=== PATIENT | female | born 1980 | race Caucasian/White ===

== ENCOUNTER 2021-02-16 15:10 | Emergency (ER) | payer BC ==
[~2021-02-16] VITALS: Ht 162 cm; Wt 54.0 kg
--- NOTE | 2021-02-16 15:49 | ED Back Pain ---
General Chief Complaint: Back Problems Stated Complaint: BACK PAIN Nursing Triage Note: PT AMB TO ROOM FT1 PT CO OF UPPER BACK PAIN FOR APPROX 2 MONTHS FROM R UPPER BACK TO AROUND UNDER ARM. RATES PAIN 02/17. STATES HAS WORSENING PAIN WHEN COUGHS OR SNEEZES. PT WAS SEEN APPROX 1 MONTH AGO AT [facility]. Source of Information: Patient Exam Limitations: No Limitations History of Present Illness Date Seen by Provider: Feb 16, 2021 Time Seen by Provider: 15:00 Initial Comments With pain to the medial border of the mid right scapula for several months. This seemed to start after cough, she is already had a chest x-ray and was told it was normal. She followed with [facility]. No fevers or chills or injury. The pain radiates around the right scapula to the lateral chest wall as a tingling sensation. She has been trying ibuprofen and some leftover Flexeril without much relief. Location: C-Spine, T-Spine Severity: Moderate Method of Injury: Unknown Allergies and Home Medications Allergies Coded Allergies: No Known Drug Allergies (Unverified , 02/16/21) Patient Home Medication List Home Medication List Reviewed: Yes Review of Systems Constitutional: see HPI EENTM: see HPI Respiratory: no symptoms reported Cardiovascular: no symptoms reported Genitourinary: no symptoms reported Musculoskeletal: see HPI Skin: no symptoms reported Past Liivgkq-Wwwtkn-Slkpbq Hx Patient Social History Tobacco Use?: Yes Tobacco type used: Cigarettes Smoking Status: Current Everyday Smoker Substance use?: Yes Substance type: Marijuana Alcohol Use?: No Pt feels they are or have been: No Immunizations Up To Date Second COVID19 Vaccination Morgan: MODERNA BOTH VACCINATION Physical Exam Vital Signs Vital Signs - First Documented 02/16/21 15:25 Temp 38.0 Pulse 68 Resp 18 B/P (MAP) 101/50 (67) Pulse Ox 97 Capillary Refill : Less Than 3 Seconds Height, Weight, BMI Height: '" Weight: lbs. oz. kg; 20.00 BMI Method: General Appearance: No Apparent Distress Respiratory: No Accessory Muscle Use, No Respiratory Distress Gastrointestinal: Normal Bowel Sounds, Non Tender, Soft Neurologic/Psychiatric: Alert, Oriented x3 Skin: Normal Color, Warm/Dry Progress/Results/Core Measures Results/Orders Vital Signs/I&O 02/16/21 15:25 Temp 38.0 Pulse 68 Resp 18 B/P (MAP) 101/50 (67) Pulse Ox 97 Blood Pressure Mean: 67 Departure Impression Primary Impression: Periscapular pain Disposition: 01 HOME, SELF-CARE Condition: Stable Departure-Patient Inst. Decision time for Depature: 15:48 Referrals: [facility] (PCP/Family) Primary Care Physician Patient Instructions: Upper Back Pain (DC) Add. Discharge Instructions: 1. Follow-up with [facility] to discuss MRI of the cervical spine given these symptoms as they could be union contract representative of a disc bulge in the lower cervical spine. Return to ER for any worsening. Pain medication as directed in the meantime. All discharge instructions reviewed with patient and/or family. Voiced understanding. Scripts Naproxen (Naprosyn) 500 Mg Tablet 500 MG PO BID PRN for PAIN-MODERATE (5-7), #30 TAB 0 Refills Prov: DAVID POZO APRN 02/16/21 Hydrocodone/Acetaminophen (Hydrocodone-Acetamin 5-325 mg) 1 Each Tablet 1 TAB PO Q4H PRN for PAIN-MODERATE (5-7), #10 TAB Prov: DAVID POZO APRN 02/16/21 Methocarbamol (Methocarbamol) 750 Mg Tablet 750 MG PO Q6-8HR for Back Pain, #20 TAB Prov: DAVID POZO APRN 02/16/21 DAVID POZO APRN Feb 16, 2021 15:49
[2021-02-16] MEDS ORDERED: METH-732 PO (15:52)
[2021-02-16] MEDS ORDERED: NAPR-1071 PO (15:52)
[2021-02-16] MEDS ORDERED: ACHD5005 PO (15:52)
[2021-02-16 16:09] VITALS: BP 101/50
== END 2021-02-16 16:14 | disposition home or self-care (01) ==
LOC: ER 15:13
DX: M25.511 Pain in right shoulder (principal); F17.210 Nicotine dependence, cigarettes, uncomplicated
CPT/HCPCS: 99281

== ENCOUNTER 2021-11-19 14:55 | Emergency (ER) | payer BC ==
[~2021-11-19 14:55] MED LIST: ACHD5005 PO; METH-732 PO; NAPR-1071 PO
[2021-11-19] MEDS ORDERED: FAMOTIDINE 20 MG (PEPCID) TABLET PO STA (15:19)
--- NOTE | 2021-11-19 15:25 | ED Chest Pain ---
General Chief Complaint: Chest Pain Stated Complaint: CHEST TIGHTNESS Nursing Triage Note: PT AMB TO RM 10 WITH C/O CP SINCE SATURDAY MORNING AND INCREASED ANXIETY Source: patient Exam Limitations: no limitations History of Present Illness Date Seen by Provider: Nov 19, 2021 Time Seen by Provider: 15:00 Initial Comments Patient to the ER by private conveyance with chief complaint that since Saturday morning, almost 36 hours ago she started experiencing tightness and discomfort substernal in her chest nonradiating. She has been dealing with some back pain for the past several weeks and went to [facility] and was started on Mobic. She does not have a history of GERD, PUD, gastritis, or reflux. She took it for a couple days as well as a steroid and did not like the way she felt and could not sleep so she stopped both of them. She noticed a little bit of numbness and tingling in her hands while at work at [employer]. She does not have a personal or family history of early onset coronary disease. She does smoke about half a pack of cigarettes per day. 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 She denies any other recreational drug use. She does occasionally use vaporizers. She is not having any nausea vomiting shortness of breath wheezing or cough. She has a history of asthma but no diabetes, hypertension, hyperlipidemia or hypothyroidism. Yesterday she thought it was just her anxiety and so she got 1/2 mg of Xanax from her friend and states that helped her significantly. She took the other half milligram this morning and it helped some with her anxiety but she was still having the tightness in her chest. Allergies and Home Medications Allergies Coded Allergies: No Known Drug Allergies (Unverified , 02/16/21) Patient Home Medication List Home Medication List Reviewed: Yes Hydrocodone/Acetaminophen (Hydrocodone-Acetamin 5-325 mg) 1 Each Tablet, 1 TAB PO Q4H PRN for PAIN-MODERATE (5-7) Prescribed by: DAVID POZO on 02/16/21 1553 Methocarbamol (Methocarbamol) 750 Mg Tablet, 750 MG PO Q6-8HR Prescribed by: DAVID POZO on 02/16/21 1552 Naproxen (Naprosyn) 500 Mg Tablet, 500 MG PO BID PRN for PAIN-MODERATE (5-7) Prescribed by: DAVID POZO on 02/16/21 1552 Review of Systems Review of Systems Constitutional: No chills, No diaphoresis EENTM: No Blurred Vision, No Double Vision Respiratory: Denies Cough, Denies Shortness of Air Cardiovascular: See HPI, Chest Pain; Denies Edema, Denies Lightheadedness, Denies Palpitations, Denies Syncope Gastrointestinal: Denies Abdomen Distended, Denies Abdominal Pain, Denies Constipated, Denies Diarrhea, Denies Nausea Genitourinary: Denies Burning, Denies Discharge Musculoskeletal: No back pain, No joint pain Skin: No pruritus, No rash All Other Systems Reviewed Negative Unless Noted: Yes Past Omljmfv-Wbesnh-Ijxgur Hx Patient Social History Tobacco Use?: Yes Tobacco type used: Cigarettes Use of E-Cig and/or Vaping dev: Yes E-Cig or Vaping type used: Marijuana Substance use?: Yes Substance type: Marijuana Substance frequency: Couple times a week Alcohol Use?: No Pt feels they are or have been: No Immunizations Up To Date First/Initial COVID19 Vaccinat: 2020 Second COVID19 Vaccination Morgan: 2020 COVID19 Vaccine Morgue Technician: MODERNAnshu Past Medical History Surgery/Hospitalization HX: PARTIAL HYSTO ASTHMA, ANXIETY Physical Exam Vital Signs Vital Signs - First Documented 11/19/21 14:58 Temp 36.6 Pulse 68 Resp 20 B/P (MAP) 116/92 (100) Capillary Refill : Height, Weight, BMI Height: '" Weight: lbs. oz. kg; BMI Method: General Appearance: WD/WN, Anxious HEENT: PERRL/EOMI, Pharynx Normal, Moist Mucous Membranes Neck: Full Range of Motion, Normal Inspection Respiratory: No Chest Non Tender (Chest pain somewhat reproducible direct palpation); Lungs Clear, Normal Breath Sounds, No Accessory Muscle Use, No Respiratory Distress Cardiovascular: Regular Rate, Rhythm, No Edema, Normal Peripheral Pulses Extremity: Normal Capillary Refill, Normal Inspection, Non Tender, No Pedal Edema Neurologic/Psychiatric: Alert, Oriented x3, Other (Anxious affect) Skin: Normal Color, Warm/Dry Progress/Results/Core Measures Results/Orders Lab Results Laboratory Tests Test 11/19/21 15:00 11/19/21 15:20 11/19/21 16:30 Range/Units White Blood Count 5.1 4.3-11.0 10^3/uL Red Blood Count 4.21 3.80-5.11 10^6/uL Hemoglobin 13.2 11.5-16.0 g/dL Hematocrit 39 35-52 % Mean Corpuscular Volume 91 80-99 fL Mean Corpuscular Hemoglobin 31 25-34 pg Mean Corpuscular Hemoglobin Concent 34 32-36 g/dL Red Cell Distribution Width 12.2 10.0-14.5 % Platelet Count 269 130-400 10^3/uL Mean Platelet Volume 9.6 9.0-12.2 fL Immature Granulocyte % (Auto) % Neutrophils (%) (Auto) 52 42-75 % Lymphocytes (%) (Auto) 38 12-44 % Monocytes (%) (Auto) 9 0-12 % Eosinophils (%) (Auto) 0 0-10 % Basophils (%) (Auto) 1 0-10 % Neutrophils # (Auto) 2.6 1.8-7.8 X 10^3 Lymphocytes # (Auto) 1.9 1.0-4.0 X 10^3 Monocytes # (Auto) 0.5 0.0-1.0 X 10^3 Eosinophils # (Auto) 0.0 0.0-0.3 10^3/uL Basophils # (Auto) 0.0 0.0-0.1 10^3/uL Prothrombin Time 13.2 12.2-14.7 SEC INR Comment 1.0 0.8-1.4 Activated Partial Thromboplast Time 26 24-35 SEC Sodium Level 141 135-145 MMOL/L Potassium Level 3.5 L 3.6-5.0 MMOL/L Chloride Level 105 98-107 MMOL/L Carbon Dioxide Level 24 21-32 MMOL/L Anion Gap 12 5-14 MMOL/L Blood Urea Nitrogen 9 7-18 MG/DL Creatinine 0.99 0.60-1.30 MG/DL Estimat Glomerular Filtration Rate 74 BUN/Creatinine Ratio 9 Glucose Level 105 70-105 MG/DL Calcium Level 9.1 8.5-10.1 MG/DL Corrected Calcium 8.8 8.5-10.1 MG/DL Magnesium Level 1.7 1.6-2.4 MG/DL Total Bilirubin 0.8 0.1-1.0 MG/DL Aspartate Amino Transf (AST/SGOT) 18 5-34 U/L Alanine Aminotransferase (ALT/SGPT) 14 0-55 U/L Alkaline Phosphatase 48 40-136 U/L Myoglobin 109.3 H 10.0-92.0 NG/ML Troponin I < 0.028 < 0.028 <0.028 NG/ML Total Protein 7.4 6.4-8.2 GM/DL Albumin 4.4 3.2-4.5 GM/DL Lipase 19 8-78 U/L Urine Color YELLOW Urine Clarity CLEAR Urine pH 5.5 5-9 Urine Specific Murray >=1.030 1.016-1.022 Urine Protein NEGATIVE NEGATIVE Urine Glucose (UA) NEGATIVE NEGATIVE Urine Ketones TRACE H NEGATIVE Urine Nitrite NEGATIVE NEGATIVE Urine Bilirubin NEGATIVE NEGATIVE Urine Urobilinogen 0.2 < = 1.0 MG/DL Urine Leukocyte Esterase NEGATIVE NEGATIVE Urine RBC (Auto) 1+ H NEGATIVE Urine RBC 2-5 H /HPF Urine WBC NONE /HPF Urine Squamous Epithelial Cells 2-5 /HPF Urine Crystals PRESENT H /LPF Urine Amorphous Sediment FEW MARIE URATES H /LPF Urine Bacteria NEGATIVE /HPF Urine Casts NONE /LPF Urine Mucus MODERATE H /LPF Urine Culture Indicated NO My Orders Orders - CHRISS WAYNE Continuous Ekg Monitoring (11/19/21 14:57) Ekg Tracing (11/19/21 14:57) Ua Culture If Indicated (11/19/21 14:57) Urine Bedside (11/19/21 14:57) Cbc With Automated Diff (11/19/21 15:19) Magnesium (11/19/21 15:19) Chest 1 View, Ap/Pa Only (11/19/21 15:19) Comprehensive Metabolic Panel (11/19/21 15:19) Myoglobin Serum (11/19/21 15:19) Protime With Inr (11/19/21 15:19) Partial Thromboplastin Time (11/19/21 15:19) O2 (11/19/21 15:19) Lipid Panel (11/20/21 06:00) Ed Iv/Invasive Line Start (11/19/21 15:19) Lipase (11/19/21 15:19) Aspirin Chewable Tablet (Baby Aspirin Ch (11/19/21 15:30) Famotidine Tablet (Pepcid Tablet) (11/19/21 15:19) Antacid Suspension (Mylanta Suspension (11/19/21 15:30) Troponin I Maribel (11/19/21 15:00) Troponin I Marion (11/19/21 15:59) Medications Given in ED Current Medications Medications Dose Ordered Sig/Alice Route Start Time Stop Time Status Last Admin Dose Admin Al Hydrox/Mg Hydrox/Simethicone 30 ml ONCE ONCE PO 11/19/21 15:30 11/19/21 15:31 DC 11/19/21 15:24 30 ML Aspirin 324 mg ONCE ONCE PO 11/19/21 15:30 11/19/21 15:31 DC 11/19/21 15:24 324 MG Vital Signs/I&O 11/19/21 14:58 Temp 36.6 Pulse 68 Resp 20 B/P (MAP) 116/92 (100) Blood Pressure Mean: 100 Progress Progress Note : Time: 15:29 Progress Note Certainly a component of anxiety. She does not want a thing else for anxiety right now. We will try GI cocktail, 3 and 24 mg of aspirin to chew and swallow and check some labs, chest x-ray. EKG is unremarkable. Vital signs are aseptic. Her asthma does not appear to be involved today. If her first troponin is negative then her heart score she has 1 point HEART Pathway Score. Low risk; 0.9-1.7% 30-day MACE. Initial ECG Impression Date: Nov 19, 2021 Initial ECG Impression Time: 15:04 Initial ECG Rate: 57 Initial ECG Rhythm: Normal Sinus Initial ECG Intervals: Normal Initial ECG Impression: Normal Comment Normal sinus rhythm without clinically relevant ST elevation or depression. Diagnostic Imaging Diagonstic Imaging: Xray Plain Films/CT/US/NM/MRI: chest Comments [facility] [place], [place] NAME: DWAIN BRAR [facility] REC#: [id number] PT STATUS: REG ER : 1980 PHYSICIAN: CHRISS WAYNE MD ADMIT DATE: 11/19/21/ER Signed Date of Exam:11/19/21 CHEST 1 VIEW, AP/PA ONLY EXAMINATION: Chest radiograph, portable AP view. DATE: 11/19/2021 3:44 PM INDICATION: 41-year-old female, chest pain. COMPARISON: None. FINDINGS: Heart size and mediastinal contours are unremarkable. There is no identified pneumothorax. There is no large pleural effusion. There is no identified focal airspace consolidation. There are right 6th and 7th rib deformities which appear most likely chronic. IMPRESSION: 1. No identified acute cardiopulmonary abnormality. 3. Deformities of the right 6th and 7th ribs which appear most likely chronic. Dictated by: Dictated on workstation # [id number] Dict: 11/19/21 1551 Trans: 11/19/21 1607 [facility] [id number] Interpreted by: HARLEY BAUTISTA MD Electronically signed by: HARLEY BAUTISTA MD 11/19/21 1604 Reviewed: Reviewed by Me Departure Impression Primary Impression: Sensation of chest pressure Additional Impression: Anxiety Disposition: HOME, SELF-CARE Condition: Stable Departure-Patient Inst. Decision time for Depature: 17:10 Referrals: [facility] (PCP/Family) Primary Care Physician ADEEL DOTY MD [facility] Patient Instructions: Chest Pain (DC) Add. Discharge Instructions: Call Dr. Doty's office tomorrow morning and request follow-up in the next couple days. He can help you understand your risk for heart disease and rule out serious problems. If he does not find significant cardiac disease then you can go back to your primary care doctor to discuss appropriate follow-up for s tress related anxiety. You should consider things like counseling, medications and therapy equally. For your back pain I recommend you call [facility] physical therapy at [phone] for a note upfront cost evaluation. If they can help you then they will set this up with your insurance company and primary care provider. Please return to the ER for crushing chest pain that is intolerable, shortness of air or other worrisome symptoms. All discharge instructions reviewed with patient and/or family. Voiced un derstanding. Work/School Note: Work Release Form Date Seen in the Emergency Department: Nov 19, 2021 Return to Work: Nov 20, 2021 Restrictions: No Restrictions Copy Copies To 1: ADEEL DOTY MD [facility] CHRISS WAYNE Nov 19, 2021 15:25
[2021-11-19] MEDS ORDERED: ANTACID SUSP 30 ML UDC (MYLANTA) PO ONE (15:30)
[2021-11-19] MEDS ORDERED: ASPIRIN 81 MG CHEW (CHILDREN'S ASA) PO ONE (15:30)
[2021-11-19 15:33] LABS: HEMATOCRIT 39 % (35-52); HEMOGLOBIN 13.2 g/dL (11.5-16.0); MEAN CORPUSCULAR HEMOGLOBIN 31 pg (25-34); MEAN CORPUSCULAR HGB CONC 34 g/dL (32-36); MEAN CORPUSCULAR VOLUME 91 fL (80-99); PLATELET COUNT 269 10^3/uL (130-400); WHITE BLOOD COUNT 5.1 10^3/uL (4.3-11.0)
[2021-11-19 15:34] LABS: BASOPHILS % (AUTO) 1 % (0-10); EOSINOPHILS % (AUTO) 0 % (0-10); LYMPHOCYTES # (AUTO) 1.9 X 10^3 (1.0-4.0); LYMPHOCYTES % (AUTO) 38 % (12-44); MEAN PLATELET VOLUME 9.6 fL (9.0-12.2); MONOCYTES # (AUTO) 0.5 X 10^3 (0.0-1.0); MONOCYTES % (AUTO) 9 % (0-12); NEUTROPHILS # (AUTO) 2.6 X 10^3 (1.8-7.8); NEUTROPHILS % (AUTO) 52 % (42-75)
[2021-11-19 15:35] LABS: PROTHROMBIN TIME PATIENT 13.2 SEC (12.2-14.7)
[2021-11-19 15:46] LABS: SODIUM 141 MMOL/L (135-145)
[2021-11-19 15:47] LABS: ALANINE AMINOTRANSFERASE 14 U/L (0-55); ALBUMIN 4.4 GM/DL (3.2-4.5); ALKALINE PHOSPHATASE 48 U/L (40-136); BILIRUBIN,TOTAL 0.8 MG/DL (0.1-1.0); BUN/CREATININE RATIO 9; CALCIUM 9.1 MG/DL (8.5-10.1); CARBON DIOXIDE 24 MMOL/L (21-32); CHLORIDE 105 MMOL/L (98-107); CREATININE SERUM 0.99 MG/DL (0.60-1.30); GFR ESTIMATED 74; GLUCOSE 105 MG/DL (70-105); LIPASE 19 U/L (8-78); MAGNESIUM 1.7 MG/DL (1.6-2.4); POTASSIUM 3.5 MMOL/L (3.6-5.0); TOTAL PROTEIN 7.4 GM/DL (6.4-8.2)
[2021-11-19 15:54] LABS: CLARITY,URINE CLEAR; COLOR,URINE YELLOW; PH,URINE 5.5 (5-9)
[2021-11-19 15:55] LABS: AMORPHOUS SEDIMENT,UR FEW AMOR URATES /LPF; BACTERIA,URINE NEGATIVE /HPF; BILIRUBIN,URINE NEGATIVE (NEGATIVE); GLUCOSE, URINE (UA) NEGATIVE (NEGATIVE); KETONES,URINE TRACE (NEGATIVE); LEUKOCYTE ESTERASE ,URINE NEGATIVE (NEGATIVE); NITRITE,URINE NEGATIVE (NEGATIVE); PROTEIN,URINE NEGATIVE (NEGATIVE)
--- NOTE | 2021-11-19 16:01 | Diagnostic Imaging Report ---
EXAMINATION: Chest radiograph, portable AP view. DATE: 11/19/2021 3:44 PM INDICATION: 41-year-old female, chest pain. COMPARISON: None. FINDINGS: Heart size and mediastinal contours are unremarkable. There is no identified pneumothorax. There is no large pleural effusion. There is no identified focal airspace consolidation. There are right 6th and 7th rib deformities which appear most likely chronic. IMPRESSION: 1. No identified acute cardiopulmonary abnormality. 3. Deformities of the right 6th and 7th ribs which appear most likely chronic. Dictated by: Dictated on workstation # [id number]
[2021-11-19 17:22] VITALS: BP 101/60
== END 2021-11-19 17:23 | disposition home or self-care (01) ==
LOC: EDUNIT# 14:55 → ER 14:57
DX: R07.89 Other chest pain (principal); F41.9 Anxiety disorder, unspecified; F17.210 Nicotine dependence, cigarettes, uncomplicated; F17.290 Nicotine dependence, other tobacco product, uncomplicated; Z79.899 Other long term (current) drug therapy
CPT/HCPCS: 36415; 71045; 80053; 81000; 83690; 83735; 83874; 84484; 84703; 85025; 85610; 85730; 93005

== ENCOUNTER → 2021-12-01 | Outpatient (CLI) | payer BC ==
[~2021-12-01] MED LIST changes: +ASPI-999 PO; +BUDE10.2 IH; +FAMO-119 PO; +RT-ALBUINH IH
== END ==
LOC: CARD 14:45
PROVIDERS: ATTEND Internal Medicine Cardiovascular Disease
DX: R07.89 Other chest pain (principal)
CPT/HCPCS: 93306

== ENCOUNTER 2021-12-05 06:42 | Day surgery (SDC) | payer BC ==
[~2021-12-05] VITALS: Ht 160 cm; Wt 53.7 kg
[2021-12-05] VITALS (10 sets, daily range): BP systolic 83–103; BP diastolic 50–89
[~2021-12-05 06:42] MED LIST changes: -ASPI-999 PO; -BUDE10.2 IH; -FAMO-119 PO; -RT-ALBUINH IH
[2021-12-05] MEDS ORDERED: LIDOCAINE 1% INJ 20 ML VIAL ONE (07:00)
[2021-12-05] MEDS ORDERED: HEParin (CATH LAB) 2,000 ML IV ONE (07:00)
[2021-12-05] MEDS ORDERED: NS IV 1000 ML 1,000 ML ONE (07:00)
[2021-12-05] MEDS ORDERED: NS IV 1000 ML 1,000 ML IV SCH ×2 (07:00→10:00)
[2021-12-05 07:23] LABS: HEMATOCRIT 37 % (35-52); HEMOGLOBIN 12.6 g/dL (11.5-16.0); MEAN CORPUSCULAR HEMOGLOBIN 31 pg (25-34); MEAN CORPUSCULAR HGB CONC 34 g/dL (32-36); MEAN CORPUSCULAR VOLUME 93 fL (80-99); MEAN PLATELET VOLUME 9.9 fL (9.0-12.2); PLATELET COUNT 240 10^3/uL (130-400); WHITE BLOOD COUNT 6.3 10^3/uL (4.3-11.0)
[2021-12-05] MEDS ORDERED: ASPI-999 PO (07:25)
[2021-12-05] MEDS ORDERED: BUDE10.2 IH (07:25)
[2021-12-05] MEDS ORDERED: FAMO-119 PO (07:25)
[2021-12-05] MEDS ORDERED: RT-ALBUINH IH (07:25)
[2021-12-05 07:35] LABS: PROTHROMBIN TIME PATIENT 13.1 SEC (12.2-14.7)
[2021-12-05 07:43] LABS: ALBUMIN 4.2 GM/DL (3.2-4.5); BILIRUBIN,TOTAL 0.6 MG/DL (0.1-1.0); CALCIUM 9.2 MG/DL (8.5-10.1); CREATININE SERUM 0.88 MG/DL (0.60-1.30); POTASSIUM 3.7 MMOL/L (3.6-5.0); TOTAL PROTEIN 6.8 GM/DL (6.4-8.2)
[2021-12-05] MEDS ORDERED: fentaNYL INJ 100 MCG/2 ML AMP ONE (08:37)
[2021-12-05] MEDS ORDERED: MIDAZOLAM 5 MG/5 ML (VERSED) VIAL ONE (08:37)
--- NOTE | 2021-12-05 09:59 | Cardiac Procedure Note-CS/ASA ---
Pre-Procedure Note Pre-Op Procedure Note H&P Reviewed The H&P was reviewed, patient examined and no changes noted. Date H&P Reviewed: Dec 05, 2021 Time H&P Reviewed: 09:00 Conscious Sedation Pre-Proced Time 09:00 ASA Score 3 For ASA 3 and 4: Consider anesthesia and medical clearance. Also, for patients with a history of failed moderate sedation consider anesthesia. Airway Lungs Heart ASA score ASA 1: a normal healthy patient ASA 2: a patient with a mild systemic disease (mid diabetes, controlled hypertension, obesity ASA 3: a patient with a severe systemic disease that limits activity (angina, COPD, prior Myocardial infarction) ASA 4: a patient with an incapacitating disease that is a constant threat to life (CHF, renal failure) ASA 5: a moribund patient not expected to survive 24 hrs. (ruptured aneurysm) ASA 6: a declared brain- patient whose organs are being harvested. For emergent operations, add the letter E after the classification Mallampati Classification Grade 2 Sedation Plan Analgesia, Amnesia, Plan communicated to team members, Discussed options with patient/fam, Discussed risks with patient/fam The patient is an appropriate candidate to undergo the planned procedure, sedation, and anesthesia. The patient immediately re-assessed prior to indication. ADEEL LIMA MD FACP FAC CCDS Dec 05, 2021 09:59
[2021-12-05] MEDS ORDERED: PATIENT MAY USE OWN MEDS, ALL PO SCH (10:00)
--- NOTE | 2021-12-05 10:01 | Discharge Inst-Cardiology ---
Discharge Inst-Cardiac Discharge Medications Continued Medications: Albuterol Sulfate (Proair Hfa) 1 Puff Puff 2 PUFF IH Q4H PRN for WHEEZING, EA 1 PUFF = 90 MCG Budesonide/Formoterol Fumarate (Symbicort 160-4.5 Mcg Inhaler) 160 Mcg-4.5 Mcg/Actuation Hfa.aer.ad 2 PUFF IH BID, EA Famotidine (Pepcid) 20 Mg Tablet 20 MG PO DAILY PRN for INDIGESTION, TAB Discontinued Medications: Aspirin (Aspirin) 81 Mg Tab.chew 81 MG PO DAILY, TAB ADEEL LIMA MD FACP FAC CCDS Dec 05, 2021 10:01
--- NOTE | 2021-12-05 10:02 | Discharge Inst-Post CATH ---
Discharge Inst-CATH/EP Post Cardiac Cath/EP D/C Inst Follow Up/Plan F/u with Dr Doty in 2 weeks ACTIVITY * Go Home directly and rest. * Limit activity of the leg (or wrist if it was used) for 7 days including aerobics, swimming, jogging, bicycling, etc. * Restrict stair-climbing for 7 days if possible, if not, climb up with your n on-cath leg, then bring together on the same step. * Avoid lifting, pushing, pulling or excessive movement of the affected ex tremity for 7 days. * Customary sexual activity may be resumed after 2 days-use caution not to use a position that strains or causes pain to the affected extremity. * No driving for 24 hours. * NO SMOKING. * Avoid straining for bowel movements for 7 days. * Gentle walking on level ground is allowed. * Returning to work will depend on the type of procedure and the results. Your doctor will discuss this with you. CALL YOUR DOCTOR FOR ANY OF THE FOLLOWING: *If bleeding from the puncture site occurs- Apply gentle pressure to site with clean cloth and call your doctor or EMS. * If a knot or lump forms under the skin, increases in size, or causes pain. * If bruising appears to be worsening or moving further down your leg instead of disappearing. * Temperature above 101 F. CARE OF YOUR GROIN INCISION; * Bruising or purple discoloration of the skin near the puncture site is common. * You may shower only, no bathtub bathing for 5 days. Be careful to avoid slipping as your leg may feel stiff. * If a closure device was used on your femoral artery, please see the attached guide regarding care of the device and your leg. * Leave dressing on FOR 24 hours. CARE OF YOUR WRIST INCISION; * Bruising or purple discoloration of the skin near the puncture site is common. * You may shower. * DO NOT submerge wrist. * Leave dressing on FOR 24 hours. ADEEL DOTY MD [facility] CCDS Dec 05, 2021 10:02
--- NOTE | 2021-12-05 10:04 | CARDIAC CATHETERIZATION ---
DATE OF SERVICE: 12/05/2021 CARDIAC CATHETERIZATION REPORT The patient is a 41-year-old lady, who has symptoms of chest discomfort and the description of chest discomfort was consistent with angina. Cardiac catheterization was recommended. Informed consent was obtained. DESCRIPTION OF PROCEDURE: She was brought to the cardiac catheterization laboratory in a fasting state. Right groin was prepared and draped in the usual sterile fashion. Lidocaine 1% was used for local anesthesia. Modified Seldinger technique was used to advance a 5-Ecuadorean sheath in right femoral artery, 5-Ecuadorean JL4 catheter was used for left coronary angiography, 5-Ecuadorean JR4 catheter for right coronary angiography, 5-Ecuadorean pigtail catheter was used for left heart catheterization and left ventricular angiography. At the end of the procedure, angiography of the right femoral artery was carried out through the sheath. Mynx was used to achieve hemostasis. She tolerated the procedure well. HEMODYNAMICS: Left ventricular end-diastolic pressure following coronary angiography was 12 mmHg. There was no significant pressure gradient on pullback across the aortic valve. Ascending aortic pressure was 90/54 with a mean of 68 mmHg. CORONARY ANGIOGRAPHY: Left main coronary artery, left anterior descending, left circumflex and right coronary artery are free of angiographically significant disease. Right coronary artery is dominant. LEFT VENTRICULAR ANGIOGRAPHY: Left ventricular angiography was carried out in the right anterior oblique projection. Global left ventricular systolic function is normal, and no distinct regional wall motion abnormality is seen in this view. Left ventricular ejection fraction approximately 60%. CONCLUSIONS: 1. No angiographically significant coronary artery disease. 2. Normal left ventricular end-diastolic pressure (12 mmHg). 3. Normal global left ventricular systolic function with ejection fraction approximately 60%. DISCUSSION AND RECOMMENDATIONS: Based on results of the study, chest discomfort does not appear to be of cardiac origin. Continuing risk factor modification is advised. Outpatient followup is advised. Job ID: [id number] DocumentID: [id number] Dictated Date: 12/05/2021 09:57:07 Power Tool Repairer Date: 12/05/2021 10:03:38 Dictated By: ADEEL LIMA MD, MA, FACP, FACC,
== END 2021-12-05 13:45 | disposition home or self-care (01) ==
LOC: CATH 06:42 → SDC 11:49 → CATH 13:45
PROVIDERS: ATTEND Internal Medicine Cardiovascular Disease
DX: R07.89 Other chest pain (principal); F41.9 Anxiety disorder, unspecified; F17.210 Nicotine dependence, cigarettes, uncomplicated; Z79.82 Long term (current) use of aspirin
CPT/HCPCS: 80053; 80061; 85027; 85610; 85730; 87081; 93005; 93458; C1760; C1894; 36415

== ENCOUNTER → 2023-01-25 | Outpatient (CLI) | payer BC ==
[~2023-01-25] MED LIST changes: +ALBU8.5H6 IH; +ASPI-999 PO; +BUDE10.2 IH; +CATHETER FLUSH 10 ML SYR IVP PRN; +FAMO-119 PO
--- NOTE | 2023-01-25 12:11 | Diagnostic Imaging Report ---
INDICATION: Right upper quadrant abdominal pain COMPARISON: None Tc-99m Choletec 5.4 mCi IV followed by 8 ounces of oral Ensure FINDINGS: The upper abdomen was imaged for 60 minutes with the gamma camera. There is normal appearance of activity in the liver. There is activity in the common duct and gallbladder by 60 minutes. After 60 minutes, the patient 8 ounces of oral Ensure. After an additional 60 minutes of imaging, the gallbladder ejection fraction was calculated to be 42% which is normal. IMPRESSION: Normal hepatobiliary study with GBEF of 42%. Dictated by: Dictated on workstation # [id number]
== END ==
LOC: CARD 10:00
PROVIDERS: ATTEND Physician Assistant
DX: R10.11 Right upper quadrant pain (principal)
CPT/HCPCS: 78227; A9537